=== PATIENT | male | born 1950 | race Caucasian/White ===

== ENCOUNTER 2016-11-15 11:35 | Inpatient (IN) | payer MEDICARE, BC ==
[~2016-11-15] VITALS: Ht 177.8 cm; Wt 120.2 kg
[~2016-11-15 11:35] MED LIST: ALBUTEROL2.5 MG/3 M NEB; ALPHAGAN P5 ML OP; BYSTOLIC5 MG PO; CELEXA40 MG PO; CENTRUM COMPLE1 EACH PO; DILTIAZEM 24HR300 MG PO; ELAVIL 10 MG TA10 MG PO; GLIPIZIDE5 MG PO; HYTRIN CAP 5 MG5 MG PO; K-DUR TAB 10 M10 MEQ PO; LASIX20 MG PO; LIPITOR TAB 2020 MG PO; MECLIZINE HCL25 MG PO; NORCO 10-325 T1 EACH PO; OLOPATADINE H30.5 GM; SPIRIVA18 MCG PO; SYNTHROID75 MCG PO; TIMOPTIC 0.5% OP5 ML OP; VENTOLIN HFA 66.7 GM PO; VITAMIN D250000 UNIT PO
[2016-11-15 16:14] LABS: HEMOGLOBIN 14.6 gm/dl (14.0-17.5); RED BLOOD COUNT 4.78 M/UL (4.20-5.50); WHITE BLOOD COUNT 4.3 K/UL (4.5-11.0)
[2016-11-15] MEDS ORDERED: BYSTOLIC5 MG PO (16:19)
[2016-11-15] MEDS ORDERED: DALIRESP500 MCG PO (16:20)
[2016-11-15] MEDS ORDERED: FLONASE 0.05% N16 GM (16:22)
[2016-11-15] MEDS ORDERED: MONTELUKAST SOD10 MG PO (16:23)
[2016-11-15] MEDS ORDERED: LATANOPROST2.5 ML OU (16:23)
[2016-11-15] MEDS ORDERED: STIOLTO RESPIMAT INH (16:26)
[2016-11-15] MEDS ORDERED: HYTRIN CAP 5 MG5 MG PO (16:27)
[2016-11-15] MEDS ORDERED: TIMOPTIC 0.5% OP5 ML OU (16:27)
[2016-11-16 05:04] LABS: RED BLOOD COUNT 4.93 M/UL (4.20-5.50)
[2016-11-16 05:27] LABS: WHITE BLOOD COUNT 1.8 K/UL (4.5-11.0)
[2016-11-16 14:45] LABS: HEMOGLOBIN 15.1 gm/dl (14.0-17.5); RED BLOOD COUNT 4.9 M/UL (4.20-5.50)
[2016-11-16 14:48] LABS: WHITE BLOOD COUNT 3.5 K/UL (4.5-11.0)
[2016-11-17 05:55] LABS: HEMOGLOBIN 14.7 gm/dl (14.0-17.5); RED BLOOD COUNT 4.8 M/UL (4.20-5.50)
[2016-11-17 05:56] LABS: WHITE BLOOD COUNT 6.7 K/UL (4.5-11.0)
[2016-11-17 06:08] LABS: BUN/CREATININE RATIO 23 (0-10)
[2016-11-17] MEDS ORDERED: LEVAQUIN TAB 5500 MG PO (13:57)
[2016-11-17] MEDS ORDERED: TAMIFLU 75 MG C75 MG PO (13:58)
== END 2016-11-17 14:54 | disposition home or self-care (01) | DRG 190 ==
LOC: MED SURG 4 14:37
PROVIDERS: ADMIT Internal Medicine
DX: J44.0 Chronic obstructive pulmonary disease with (acute) lower respiratory infection (principal); J09.X1 Influenza due to identified novel influenza A virus with pneumonia; J96.10 Chronic respiratory failure, unspecified whether with hypoxia or hypercapnia; J44.1 Chronic obstructive pulmonary disease with (acute) exacerbation; Z91.040 Latex allergy status; Z88.8 Allergy status to other drugs, medicaments and biological substances; Z91.048 Other nonmedicinal substance allergy status; Z79.84 Long term (current) use of oral hypoglycemic drugs; Z79.899 Other long term (current) drug therapy; H40.9 Unspecified glaucoma; Z87.01 Personal history of pneumonia (recurrent); G47.00 Insomnia, unspecified; E78.5 Hyperlipidemia, unspecified; E03.9 Hypothyroidism, unspecified; I12.9 Hypertensive chronic kidney disease with stage 1 through stage 4 chronic kidney disease, or unspecified chronic kidney disease; E11.22 Type 2 diabetes mellitus with diabetic chronic kidney disease; N18.3 Chronic kidney disease, stage 3 (moderate); Z90.49 Acquired absence of other specified parts of digestive tract; Z82.49 Family history of ischemic heart disease and other diseases of the circulatory system; Z83.3 Family history of diabetes mellitus; Z87.891 Personal history of nicotine dependence; E66.9 Obesity, unspecified; Z68.38 Body mass index [BMI] 38.0-38.9, adult; N40.0 Benign prostatic hyperplasia without lower urinary tract symptoms; M15.8 Other polyosteoarthritis
CPT/HCPCS: 36415; 71020; 80048; 82962; 83735; 85025; 85027; 87040; 87070; 87205; 94640; 94664; J1956; J2930